=== PATIENT | female | born 1930 ===

== ENCOUNTER 2018-10-01 08:10 | Day surgery (SDC) | payer OTHER ==
[~2018-10-01 08:10] MED LIST: COZAAR100 MG; JANUMET 50-5001 EACH; METOPROLOL SUCC50 MG; OMEPRAZOLE10 MG; ZANTAC25 MG/1 ML
[2018-10-01] MEDS ORDERED: PERCOCET 5-3251 EACH PO (13:24)
== END 2018-10-01 14:30 | disposition home or self-care (01) ==
LOC: CIR.AMB 08:10
DX: D35.1 Benign neoplasm of parathyroid gland (principal)